=== PATIENT | female | born 1970 | race Caucasian/White ===

== ENCOUNTER 2024-06-17 08:42 | Emergency (ER) | payer OTHER, SELFPAY ==
[2024-06-17 08:48] VITALS: BP 171/105
--- NOTE | 2024-06-17 09:15 | ED.GENMED ---
History of Present Illness
General
Chief Complaint: Nose Bleed
Source: patient
Exam Limitations: none
Time Seen by Provider: 06/17/24 08:59
Nursing documentation reviewed up to this point in time: agreed with
History of Present Illness
History of Present Illness:
54 yr old female with past medical history of hyperlipidemia presents to the ER complaining of a nosebleed. She reports this morning she was awoken at 6 AM by bleeding from her right nostril and reports that just prior to arrival. In addition she
had 2 nosebleeds 1 last Thursday and 1 last Thursday both out of the right nostril. Each resolved on its own. She is not on blood thinners. She has no prior history of nosebleeds but she does report she was in a hotel room over the weekend when she
had her 2 previous nosebleeds with a lot of forced air. She denies any recent illness fever chills.
Review of Systems
Review of Systems
Allergies reviewed?: Yes
All Other Systems: ROS reviewed and negative except as documented in HPI and ROS
Constitutional: Reports no symptoms; Denies fever
EENT: Reports other (right sided nose bleed prior to arrival resolved prior to arrival )
Respiratory: Reports no symptoms
Cardiac: Reports no symptoms
ABD/GI: Reports no symptoms
Musculoskeletal: Reports no symptoms
Skin: Reports no symptoms
Psychiatric: Reports no symptoms
Phy Exam
General Physical Exam
General Presentation: no apparent distress
General age: appears stated age
General Skin: warm and dry
General Habitus: normal
General Mental: alert
General Hydration: appears well hydrated
ENT Exam
ENT Exam: other (right nares with small amount of bright red blood no active bleeding )
Neurological Exam
Neurological Exam: alert and oriented x3
Musculoskeletal Exam
Musculoskeletal Exam: full ROM
Skin Exam
Skin Exam: normal color and warm/dry
Psychiatric Exam
Psychiatric Exam: normal mood/affect
Course
Orders/Labs/Results
Orders:
Orders
06/17/24 09:21
CMP [Comprehensive Metabolic Panel] Urgent
Complete Blood Count/With Diff Urgent
PT/INR [Prothrombin Time] Urgent
PTT Urgent
Abnormal Lab Results
06/17/24
09:21
Chloride 108 H mmol/L
(98-107)
Glucose 111 H mg/dl
(70-99)
06/17/24 09:21
06/17/24 09:21
Vital Signs
Initial and Last Documented VS:
Initial Vital Signs
Temp Resp BP Pulse Ox
98.8 F 16 171/105 98
06/17/24 08:48 06/17/24 08:48 06/17/24 08:48 06/17/24 08:48
Last Documented Vital Signs
Temp Pulse Resp BP Pulse Ox
98.8 F 89 16 130/92 95
06/17/24 08:48 06/17/24 10:03 06/17/24 08:48 06/17/24 10:00 06/17/24 10:00
MDM/Problems Addressed
Differential Diagnosis Includes:
Not limited to epistaxis
MDM/Problems Addressed:
Patient is a 54-year-old female with past with history of hyperlipidemia not on blood thinners presents to the ER for nosebleed. Patient was awoken this morning by a right nares nosebleed around 6 AM this resolved prior to arrival. She had 2
nosebleeds last week which resolved on its own. She does admit to being in a hotel recently with forced dry air. She is very anxious on arrival however no active bleeding. I was able to visualize the site of the bleeding and able to cauterize
however patient has not had any bleeding here. Her labs are unremarkable including normal coagulation and platelets normal hemoglobin. She is mildly hypertensive and very anxious will have her follow-up with ENT as needed and have her blood
pressure rechecked by her family doctor.
*Critical Care Note
Total Time (30-74mins, 75-104mins- exclusive of procedures): Not Applicable
ED Attending Note
-
Portions of this chart may have been created with voice recognition software.� Occasional wrong word or��sound alike� substitutions may have occurred due to the inherent limitations of voice recognition software.
Discharge Plan
Departure
Patient Disposition: Home (Routine Discharge)
Date of Disposition: 06/17/24
Time of Disposition: 10:13
Patient with high blood pressure during this ER visit?: Yes
Condition: Fair
Covid-19: Not Applicable
Discharge Problem:
Epistaxis
Instructions: Nosebleeds (DC), BLOOD PRESSURE
Prescriptions:
No Action
sulfamethoxazole-trimethoprim 1 TABLET tablet
1 tab PO BID 10 Days 0RF
Referrals:
Pro Leary DO [Family Provider] -
Benjamín Mota MD [Active] -
Activity Restrictions/Additional Instructions:
As discussed avoid blowing your nose for the next 48 hours. Follow-up with ENT as needed. Also follow-up with family doctor in the next 7 days for reevaluation and blood pressure recheck. Return if any worsening of symptoms.
Interventions
Interventions:
*Risk Screen - Suicide Last Done: 06/17/24 08:48
*General Assessment Last Done: 06/17/24 08:48
*Neglect/Abuse Screening Last Done: 06/17/24 08:48
ED- Fall Risk Assessment Last Done: 06/17/24 09:08
*ED COVID-19 Vaccine History Last Done: 06/17/24 09:08
ED-EENT Assessment Last Done: 06/17/24 09:08
Discharge Date and Time
Print Language: CHINESE
[2024-06-17 09:23] VITALS: BP 136/105
[2024-06-17 09:39] LABS: % Basophils 0.6 % (0-2); % Immature Granulocytes 0.4 % (0-0.5); % Lymphocytes 28.3 % (20.5-51.1); % Monocytes 5.5 % (1.7-9.3); % Neutrophils 64.2 % (42.2-75.2); Absolute Eosinophils 0.1 10^3/uL (0-0.7); Absolute Lymphocytes 1.4 10^3/uL (1.2-3.4); Absolute Monocytes 0.3 10^3/uL (0.1-0.6); Absolute Neutrophils 3.3 10^3/uL (1.4-6.5); Hematocrit 41.9 % (37.0-47.0); Hemoglobin 14.1 g/dL (12.0-16.0); Mean Corp Hgb Conc. 33.7 g/dL (33.0-37.0); Mean Corpuscular Volume 86.2 fL (81.0-99.0); Mean Platelet Volume 8.7 fL (7.4-10.4); Nucleated Red Blood Cells % 0 %; Platelet Count 281 10^3/uL (130-400); Red Blood Cell Count 4.86 10^6/uL (4.20-5.40); Red Cell Dist. Width 12.3 % (11.5-14.5); White Blood Cell Count 5.1 10^3/uL (4.8-10.8)
[2024-06-17 09:43] LABS: INR 0.85; PT 11.9 Sec (11.4-14.6)
[2024-06-17 09:44] LABS: APTT 30.5 Sec (23.4-35.0)
[2024-06-17 09:47] LABS: ALT (SGPT) 33 U/L (0-35); AST (SGOT) 32 U/L (14-36); Alkaline Phosphatase 52 U/L (38-126); Blood Urea Nitrogen 15 mg/dl (7-17); Calcium 9.6 mg/dl (8.4-10.2); Carbon Dioxide 27 mmol/L (22-30); Chloride 108 mmol/L (98-107); Glucose 111 mg/dl (70-99); Potassium 4.4 mmol/L (3.5-5.1); Sodium 143 mmol/L (135-145); Total Bilirubin 0.3 mg/dl (0.2-1.3); Total Protein 7.4 g/dl (6.3-8.2); eGFR > 60.00
[2024-06-17 10:00] VITALS: BP 130/92
== END 2024-06-17 10:31 | disposition home or self-care (01) ==
LOC: EMR 08:42
PROVIDERS: Nurse Practitioner; EMERGENCY PHYSICIAN Emergency Medicine; FAMILY PHYSICIAN Internal Medicine
DX: R04.0 Epistaxis (principal); E78.5 Hyperlipidemia, unspecified
CPT/HCPCS: 30901; 99283; 80053; 85025; 85610; 85730